=== PATIENT | female | born 1960 | race Two or more races ===

== ENCOUNTER 2022-07-25 10:48 | Emergency (ER) | payer OTHER ==
[2022-07-25 11:27] LABS: BASOPHILS % (AUTO) 0.8 %; EOSINOPHILS % (AUTO) 1.9 %; HGB - HEMOGLOBIN 12.4 g/dL (12.0-16.0); LYMPHOCYTES # (AUTO) 2.4 10^3/uL (1.5-3.5); LYMPHOCYTES % (AUTO) 37.9 %; MEAN CORPUSCULAR HEMOGLOBIN 23.8 pg (27.0-31.0); MEAN CORPUSCULAR HGB CONC 30.2 g/dL (32.0-36.0); MEAN CORPUSCULAR VOLUME 78.8 fL (81.0-99.0); MONOCYTES % (AUTO) 9.5 %; NEUTROPHILS # (AUTO) 3.2 10^3/uL (1.5-6.6); NEUTROPHILS % (AUTO) 49.7 %; PLT - PLATELET COUNT 350 10^3/uL (130-450); WHITE BLOOD COUNT 6.3 x10^3/uL (4.8-10.8)
[2022-07-25 11:28] LABS: MEAN PLATELET VOLUME 9.7 fL (7.9-10.8); RED CELL DISTRIBUTION WIDTH 16.7 % (12.0-15.0)
[2022-07-25 11:39] LABS: ALBUMIN/GLOBULIN RATIO 1.1 (1.0-2.2); BILIRUBIN,TOTAL 0.6 mg/dL (0.2-1.0); CREATININE 0.8 mg/dL (0.4-1.0); POTASSIUM 3.5 mmol/L (3.5-5.0); TOTAL PROTEIN 7.8 g/dL (6.7-8.2)
--- NOTE | 2022-07-25 11:40 | XRAY Report ---
PROCEDURE: Chest 1 View X-Ray INDICATIONS: Chest pain TECHNIQUE: One view of the chest was acquired. COMPARISON: None. FINDINGS: Surgical changes and devices: None. Lungs and pleura: No pleural effusions or pneumothorax. Lungs appear clear. Mediastinum: Mediastinal contours appear normal. Heart size is normal. Bones and chest wall: No suspicious bony lesions. Overlying soft tissues appear unremarkable. IMPRESSION: No acute cardiopulmonary abnormality. Reviewed by: Bi Rausch MD on 07/25/2022 11:39 AM [facility] Approved by: Bi Rausch MD on 07/25/2022 11:39 AM [facility] Station ID: [id number]
[2022-07-25 11:46] LABS: BASOPHILS # (AUTO) 0.1 10^3/uL (0.0-0.1); EOSINOPHILS # (AUTO) 0.1 10^3/uL (0.0-0.7); MONOCYTES # (AUTO) 0.6 10^3/uL (0.0-1.0)
[2022-07-25 14:53] VITALS: BP 110/75
--- NOTE | 2022-07-25 15:03 | ED Physician Documentation ---
PD HPI CHEST PAIN - Stated complaint Stated Complaint: CHEST PX/C+ - Chief complaint Chief Complaint: Cardiac - History obtained from History obtained from: Patient - Additional information Additional information: Patient is a 62-year-old female with History of asthma presenting for evaluation of right-sided chest pain that feels like a soreness for the past 36 hours. The pain does not radiate elsewhere. It is worse when she palpates a particular area of her chest. The pain has been constant. It is not worse with exertion.It is not worse when taking a deep breath. She recently has tested positive with COVID this morning and has been having symptoms since Saturday. She feels generalized malaise, chills, productive cough with clear sputum. She denies difficulty with her breathing. She denies pain or swelling in her legs.She was seen at the walk-in clinic and directed to the emergency department for evaluation of her chest pain. . Review of Systems Constitutional: reports: Chills Nose: reports: Congestion Cardiac: reports: Chest pain / pressure Respiratory: reports: Cough GI: denies: Abdominal Pain, Vomiting Musculoskeletal: denies: Back pain Neurologic: denies: Headache PD PAST MEDICAL HISTORY - Allergies Allergies/Adverse Reactions: Allergies Allergy/AdvReac Type Severity Reaction Status Date / Time amoxicillin Allergy Respiratory Verified 07/25/22 11:02 Penicillins Allergy Respiratory Verified 07/25/22 11:02 cillins Allergy Respiratory Uncoded 07/25/22 11:02 PD ED PE NORMAL - General General: Alert and oriented X 3, No acute distress, Well developed/nourished - HEENT HEENT: Atraumatic - Neck Neck: Supple, no meningeal sign - Cardiac Cardiac: RRR, No murmur, Other (Right chest wall tenderness to palpation) - Respiratory Respiratory: No respiratory distress, Clear bilaterally - Abdomen Abdomen: Soft, Non tender - Extremities Extremities: No edema, No calf tenderness / cord - Neuro Neuro: Normal speech Results - Vitals Vitals: Vital Signs - 24 hr 07/25/22 07/25/22 10:56 14:52 Temperature 36.2 C L 36.9 C Heart Rate 77 79 Respiratory 18 16 Rate Blood Pressure 121/86 H 110/75 O2 Saturation 98 98 Oxygen O2 Source Room air - EKG (time done) 1106 Rate: Rate (enter#) (76) Rhythm: NSR Ischemia: No: ST elevation c/w ischemia - Labs Labs: Laboratory Tests 07/25/22 07/25/22 07/25/22 11:15 11:15 11:15 WBC 6.3 RBC 5.20 Hgb 12.4 Hct 41.0 MCV 78.8 L MCH 23.8 L MCHC 30.2 L RDW 16.7 H Plt Count 350 MPV 9.7 Neut # (Auto) 3.2 Lymph # (Auto) 2.4 [place] # (Auto) 0.6 Eos # (Auto) 0.1 Baso # (Auto) 0.1 Absolute Nucleated RBC 0.00 Nucleated RBC % 0.0 Sodium 138 Potassium 3.5 Chloride 100 L Carbon Dioxide 28 Anion Gap 10.0 BUN 15 Creatinine 0.8 Estimated GFR (MDRD) 73 L Glucose 97 Calcium 9.0 Total Bilirubin 0.6 AST 16 ALT 14 Alkaline Phosphatase 65 Troponin I High Sens < 2.3 L Total Protein 7.8 Albumin 4.0 Globulin 3.8 Albumin/Globulin Ratio 1.1 Lipase 31 PD Medical Decision Making - ED course Complexity details: reviewed results, d/w patient, d/w family ED course: Patient is a 8-year-old female presenting for evaluation of right-sided chest pain in the setting of recent COVID diagnosis. Her vital signs here are stable and her EKG is reviewed. Her chest x-ray is clear. Her chest pain is reproducible. She denies shortness of breath or labored breathing or pain that is worse with breathing. She otherwise has no risk factors for pulmonary embolism. Vital signs here are stable.Patient was counseled on continuing supportive care as well as concerning symptoms to return for. Departure - Departure Disposition: 01 Home, Self Care Clinical Impression: Right-sided chest pain, COVID-19 Condition: Stable Instructions: ED Chest Pain Atypical Unkn Cause, ED Viral Syndrome Comments: Your cardiac testing here has been normal and your chest x-ray is clear. Your vital signs are also stable. Please continue with symptomatic treatment for COVID which includes acetaminophen or ibuprofen for fevers, hydration and rest. If you have any new or worsening symptoms including changes to the chest pain then please consider return to the emergency department. Discharge Date/Time: 07/25/22 15:08
== END 2022-07-25 15:08 | disposition home or self-care (01) ==
LOC: ED 10:48
DX: R07.89 Other chest pain (principal); U07.1 COVID-19
CPT/HCPCS: 36415; 80053; 83690; 84484; 85025; 93005; 99284

== ENCOUNTER 2023-05-25 12:46 | Outpatient (CLI) | payer OTHER ==
--- NOTE | 2023-05-25 13:04 | XRAY Report ---
PROCEDURE: Chest 2 View X-Ray INDICATIONS: ACUTE BRONCHITIS WITH BRONCHOSPASM TECHNIQUE: 2 views of the chest were acquired. COMPARISON: Chest x-ray 07/25/2022 FINDINGS: Surgical changes and devices: None. Lungs and pleura: No pleural effusions or pneumothorax. Lungs are clear. Mediastinum: Mediastinal contours appear normal. Heart size is normal. Bones and chest wall: No suspicious bony lesions. Overlying soft tissues appear unremarkable. IMPRESSION: No acute cardiopulmonary process. Reviewed by: Vero Crabtree MD on 05/25/2023 1:03 PM PDT Approved by: Vero Crabtree MD on 05/25/2023 1:03 PM PDT Station ID: [id number]
== END 2023-05-25 23:59 | disposition home or self-care (01) ==
LOC: DI.S 12:46
PROVIDERS: ATTEND Emergency Medicine
DX: J20.9 Acute bronchitis, unspecified (principal)